=== PATIENT | male | born 1985 | race Asian ===

== ENCOUNTER 2020-04-06 22:00 | Emergency (ER) | payer OTHER ==
[2020-04-06 22:28] LABS: BASOPHILS % (AUTO) 0.8 % (0.0-5.0); LYMPHOCYTES % (AUTO) 28.2 % (21.0-51.0); MEAN CORPUSCULAR HEMOGLOBIN 31.8 pg (27.0-33.0); MEAN CORPUSCULAR HGB CONC 37.4 g/dL (32.0-36.0); MONOCYTES % (AUTO) 6.7 % (3.0-13.0); NEUTROPHILS % (AUTO) 61.5 % (40.0-77.0); PLATELET COUNT (AUTO) 262 K/uL (130-400); RED BLOOD CELL COUNT(AUTO) 4.94 MIL/uL (4.50-6.20); RED CELL DISTRIBUTION WIDTH 11.9 % (11.0-15.5); WHITE BLOOD COUNT (AUTO) 6.5 K/uL (4.8-10.8)
[2020-04-06] MEDS ORDERED: TETANUS/DIPHTHERIA TOXOID [ADULT] 0.5 ML VIAL IM ONE (22:44)
[2020-04-06] MEDS ORDERED: ONDANSETRON ODT 4 MG TAB ONE (22:44)
[2020-04-06] MEDS ORDERED: HYDROCODONE/ACETAMINOPHEN 5/325 MG TAB ONE (22:44)
[2020-04-06 22:59] LABS: POTASSIUM 3.9 mmol/L (3.5-5.1)
[2020-04-06 23:03] LABS: ALBUMIN 4.2 g/dL (3.5-5.0); BILIRUBIN,TOTAL 0.6 mg/dL (0.2-1.0)
[2020-04-06] MEDS ORDERED: LIDOCAINE HCL 1% 20 ML VIAL ONE (23:07)
[2020-04-06 23:46] LABS: TOTAL PROTEIN, SERUM 6.7 g/dL (6.0-8.3)
== END 2020-04-07 00:38 | disposition home or self-care (01) ==
LOC: EDH 22:00
DX: S01.01XA Laceration without foreign body of scalp, initial encounter (principal); S80.11XA Contusion of right lower leg, initial encounter; S10.93XA Contusion of unspecified part of neck, initial encounter; E78.1 Pure hyperglyceridemia; V49.49XA Driver injured in collision with other motor vehicles in traffic accident, initial encounter; Y93.89 Activity, other specified; Y92.488 Other paved roadways as the place of occurrence of the external cause; Y99.8 Other external cause status
CPT/HCPCS: 12034; 36415; 70450; 70490; 71045; 73590; 80053; 84478; 84484; 85025; 90471; 90714; 93005

== ENCOUNTER 2020-04-23 09:30 | Emergency (ER) | payer OTHER | END 2020-04-23 10:04 | disposition home or self-care (01) | LOC: EDH 09:30 | DX: S01.01XD Laceration without foreign body of scalp, subsequent encounter (principal); X58.XXXD Exposure to other specified factors, subsequent encounter | CPT/HCPCS: 99281 ==